=== PATIENT | female | born 1975 | race Caucasian/White ===

== ENCOUNTER 2017-05-05 11:33 | Emergency (ER) | payer MEDICAID ==
--- NOTE | 2017-05-05 12:46 | ED Physician Documentation ---
PD HPI OPHTHO - Stated complaint Stated Complaint: L EYE PX/BACK PX - Chief complaint Chief Complaint: Heent - History obtained from History obtained from: Patient - History of Present Illness Timing - onset: Other (She has 2 issues, seemingly unrelated. For the last 5 days without specific trauma she has had redness of the left eye with tearing and slight photophobia but no vision changes. She has never had that before. She does not wear contacts. Also for the same amount of time she has had upper lumbar pain which is much worse if she leans to the left but is nonradiating. She is in minimal pain at rest. There is no associated weakness, numbness, or tingling of the legs or saddle area. No fevers. 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 HEENT: Tonsil/Adenoidectomy - Present Medications Home Medications: Ambulatory Orders Medication Instructions Recorded Confirmed Atorvastatin [Lipitor] 03/29/17 Cyclobenzaprine [Flexeril] 10 mg PO TID PRN #20 tablet 03/29/17 HYDROcod/ACETAM 5/325 [[place] 5/325] 1 - 2 ea PO Q6H PRN #12 tablet 03/29/17 Levothyroxine [Synthroid] 200 mcg PO DAILY 03/29/17 03/29/17 Pantoprazole [Protonix] 40 mg PO DAILY 03/29/17 03/29/17 Sertraline HCl [Zoloft] 100 mg PO DAILY 03/29/17 03/29/17 buPROPion [Wellbutrin Sr] 03/29/17 Cyclobenzaprine [Flexeril] 10 mg PO TID PRN #20 tablet 05/05/17 Ketorolac 0.45% Ophth Drops 1 each OPTH QID #1 bot 05/05/17 [Acuvail] Meloxicam [Mobic] 7.5 mg PO BIDWM PRN #15 tablet 05/05/17 - Allergies Allergies/Adverse Reactions: Allergies Allergy/AdvReac Type Severity Reaction Status Date / Time amoxicillin Allergy Mild Rash Verified 05/05/17 11:42 - Social History Does the pt smoke?: Yes Smoking Status: Current every day smoker Does the pt drink ETOH?: No Does the pt have substance abuse?: No - Immunizations Immunizations are current?: Yes PD ED PE NORMAL - Vitals Vital signs reviewed: Yes - General General: Alert and oriented X 3, No acute distress - HEENT HEENT: PERRL, EOMI, Other (The left eye has a lateral And inferior sub- conjunctival hematoma, pupils equally round reactive light extra ocular movements are intact, globes are soft.) - Neck Neck: Supple, no meningeal sign, No bony TTP - Back Back: Other (She has muscular tenderness of the upper paralumbar musculatures with good range of motion, she has equal and symmetric Babinski and patellar reflexes, she has very mildly diminished sensation she says on the left thigh and medial calf but not the lateral calf.) - Neuro Neuro: Alert and oriented X 3, Normal speech - Psych Psych: Normal mood, Normal affect Results - Vitals Vitals: Vital Signs - 24 hr 05/05/17 11:38 Temperature 36.6 C Heart Rate 68 Respiratory 16 Rate Blood Pressure 124/86 H O2 Saturation 99 Oxygen O2 Source Room air PD MEDICAL DECISION MAKING - ED course ED course: 42-year-old woman with 2 issues, she has a sub-conjunctival hematoma on the left , it is bothering her so we will give her a topical NSAID for that. She also has what seems like back spasm, she does have some evidence of radicular component on exam, but I suspect that is a more subacute issue. Departure - Departure Disposition: 01 Home, Self Care Clinical Impression: Back spasm Subconjunctival hemorrhage Qualifiers: Laterality: left Qualified Code(s): H11.32 - Conjunctival hemorrhage, left eye Condition: Good Record reviewed to determine appropriate education?: Yes Instructions: ED Eye Injury Subconj Hemorrhage, ED Spasm Back No Trauma Follow-Up: [facility] [Provider Group] Henrry Fuentes MD [Provider Admit Priv/Credential] - Within 3 Days Prescriptions: Cyclobenzaprine [Flexeril] 10 mg PO TID PRN #20 tablet PRN Reason: Pain Ketorolac 0.45% Ophth Drops [Acuvail] 1 each OPTH QID #1 bot Meloxicam [Mobic] 7.5 mg PO BIDWM PRN #15 tablet PRN Reason: Pain Comments: Call your doctor to arrange a follow-up appointment, make the next available appointment. In the interim, return anytime if worse or if new symptoms develop. Your blood pressure was elevated today on check into the emergency department. This does not mean that you have hypertension, it is a common phenomenon to come to the emergency department and have elevated blood pressure. I recommend that you see your primary care physician within the week to have it rechecked when you are feeling better.
[2017-05-05 12:58] VITALS: BP 122/80
== END 2017-05-05 12:57 | disposition home or self-care (01) ==
LOC: ED 11:33
DX: H11.32 Conjunctival hemorrhage, left eye (principal); M62.830 Muscle spasm of back; E78.00 Pure hypercholesterolemia, unspecified; E05.90 Thyrotoxicosis, unspecified without thyrotoxic crisis or storm; K21.9 Gastro-esophageal reflux disease without esophagitis; F17.200 Nicotine dependence, unspecified, uncomplicated; R03.0 Elevated blood-pressure reading, without diagnosis of hypertension
CPT/HCPCS: 99283

== ENCOUNTER 2017-05-20 11:06 | Emergency (ER) | payer MEDICAID ==
[2017-05-20] MEDS ORDERED: LEVOTHYROXINE 100 MCG TABLET PO STA (12:17)
[2017-05-20 12:29] LABS: BASOPHILS # (AUTO) 0.1 10^3/uL (0.0-0.1); EOSINOPHILS # (AUTO) 0.3 10^3/uL (0.0-0.7); EOSINOPHILS % (AUTO) 2.5 %; HCT - HEMATOCRIT 39.5 % (37.0-47.0); HGB - HEMOGLOBIN 13.7 g/dL (12.0-16.0); LYMPHOCYTES # (AUTO) 2.6 10^3/uL (1.5-3.5); LYMPHOCYTES % (AUTO) 24.2 %; MEAN CORPUSCULAR HEMOGLOBIN 32.4 pg (27.0-31.0); MEAN CORPUSCULAR HGB CONC 34.7 g/dL (32.0-36.0); MEAN CORPUSCULAR VOLUME 93.3 fL (81.0-99.0); MEAN PLATELET VOLUME 9.1 fL (7.9-10.8); MONOCYTES # (AUTO) 0.5 10^3/uL (0.0-1.0); MONOCYTES % (AUTO) 4.6 %; NEUTROPHILS # (AUTO) 7.2 10^3/uL (1.5-6.6); NEUTROPHILS % (AUTO) 67.7 %; RED BLOOD COUNT 4.23 10^6/uL (4.20-5.40); UNCORRECTED WHITE BLOOD COUNT 10.6 x10^3/uL; WHITE BLOOD COUNT 10.6 x10^3/uL (4.8-10.8)
[2017-05-20 12:34] LABS: ALBUMIN/GLOBULIN RATIO 1.4 (1.0-2.2); BILIRUBIN,TOTAL 0.6 mg/dL (0.2-1.0); CALCIUM 9.6 mg/dL (8.5-10.3); CREATININE 1.1 mg/dL (0.4-1.0); POTASSIUM 3.9 mmol/L (3.5-5.0); TOTAL PROTEIN 7.8 g/dL (6.7-8.2)
[2017-05-20 14:00] VITALS: BP 133/95
--- NOTE | 2017-05-20 14:03 | ED Physician Documentation ---
History of Present Illness - Stated complaint Stated Complaint: FATIGUE,RX REFILL - Chief complaint Chief Complaint: Cardiac - History obtained from History obtained from: Patient - Additonal information Additional information: The patient is a 42-year-old female who complains of fatigue and states that she thinks it is caused by "not having my medication for 2 months." She has a history of hypothyroidism and has been out of her levothyroxine for the past 2 months. She also has history of depression, hyperlipidemia, and acid reflux, for which she normally takes sertraline, bupropion, atorvastatin, and pantoprazole. She moved here 2 months ago and has not had a local primary physician, but is scheduled to be seen by Dr. Pacheco. In addition to fatigue, she reports having anterior chest pain yesterday while walking. Her pain lasted for about 15 minutes and she reports having associated shortness of breath. She has been asymptomatic today. She reports having a history of similar symptoms about 4 months ago, and after medical evaluation at that time was told she had "fluid around my heart." On further review of systems she denies fever, cough, abdominal pain, nausea or vomiting. She denies dysuria. Review of Systems Constitutional: reports: Fatigue. denies: Fever Ears: denies: Tinnitus/ringing Nose: denies: Congestion Throat: denies: Sore throat Cardiac: reports: Chest pain / pressure (Yesterday, but not today.). 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 HEENT: Tonsil/Adenoidectomy - Present Medications Home Medications: Ambulatory Orders Medication Instructions Recorded Confirmed Atorvastatin [Lipitor] 40 mg ORAL QPM 03/29/17 05/20/17 Levothyroxine [Synthroid] 200 mcg PO DAILY 03/29/17 05/20/17 Pantoprazole [Protonix] 40 mg PO DAILY 03/29/17 05/20/17 Sertraline HCl [Zoloft] 100 mg PO DAILY 03/29/17 05/20/17 Atorvastatin Calcium 40 mg PO DAILY #20 tablet 05/20/17 Bupropion HCl [Bupropion Xl] 150 mg PO DAILY 05/20/17 05/20/17 Bupropion HCl [Bupropion Xl] 150 mg PO DAILY #20 tab.er.24h 05/20/17 Levothyroxine Sodium 200 mcg PO DAILY #20 tablet 05/20/17 Pantoprazole Sodium 40 mg PO DAILY #20 tablet.dr 05/20/17 Sertraline HCl 100 mg PO DAILY #20 tablet 05/20/17 - Allergies Allergies/Adverse Reactions: Allergies Allergy/AdvReac Type Severity Reaction Status Date / Time amoxicillin Allergy Mild Rash Verified 05/20/17 11:15 - Social History Does the pt smoke?: Yes Smoking Status: Current every day smoker Does the pt drink ETOH?: No Does the pt have substance abuse?: No - Immunizations Immunizations are current?: Yes PD ED PE NORMAL - Vitals Vital signs reviewed: Yes (normal) - General General: Alert and oriented X 3, Well developed/nourished - HEENT HEENT: Atraumatic, EOMI, Moist mucous membranes, Pharynx benign - Neck Neck: No adenopathy, No JVD - Cardiac Cardiac: RRR, No murmur - Respiratory Respiratory: No respiratory distress, Clear bilaterally - Abdomen Abdomen: Soft, Non tender, No organomegaly - Back Back: No CVA TTP - Derm Derm: No rash - Neuro Neuro: Alert and oriented X 3, No motor deficit, Normal speech Results - Vitals Vitals: Oxygen O2 Source Room air - EKG (time done) 11:23 Rate: Rate (enter#) (93) Rhythm: NSR [place]: Posterior hemiblock Intervals: Normal [place] QRS: Poor R wave progression, Low voltage Ischemia: Normal ST segments Computer interpretation: Agree with computer - Labs Labs: Laboratory Tests 05/20/17 05/20/17 11:37 11:37 WBC 10.6 RBC 4.23 Hgb 13.7 Hct 39.5 MCV 93.3 MCH 32.4 H MCHC 34.7 RDW 15.0 Plt Count 244 MPV 9.1 Neut # 7.2 H Lymph # 2.6 [place] # 0.5 Eos # 0.3 Baso # 0.1 Absolute Nucleated RBC 0.01 Nucleated RBC % 0.0 Sodium 137 Potassium 3.9 Chloride 98 L Carbon Dioxide 30 Anion Gap 9.0 BUN 15 Creatinine 1.1 H Estimated GFR (MDRD) 54 L Glucose 83 Calcium 9.6 Total Bilirubin 0.6 AST 40 ALT 25 Alkaline Phosphatase 36 L Total Protein 7.8 Albumin 4.5 Globulin 3.3 Albumin/Globulin Ratio 1.4 Lipase 28 PD MEDICAL DECISION MAKING - ED course Complexity details: reviewed results, re-evaluated patient, considered differential, d/w patient, d/w family ED course: The patient's presentation is significant for fatigue that may well be related to running out of her thyroid medication. The possibility of cardiac etiology was considered, given the patient's history of 15 minutes of chest discomfort yesterday. Her electrocardiogram reveals no ischemic abnormalities. CBC and chemistry panel are unremarkable. There is no clinical evidence to suggest infectious etiology. 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 She is being discharged with prescriptions for her 5 previously prescribed medications, including levothyroxine, sertraline, bupropion, atorvastatin, and pantoprazole. I discussed with her and her the importance of outpatient follow-up, as well as potentially worrisome signs or symptoms that should prompt reevaluation in the emergency department. Departure - Departure Disposition: 01 Home, Self Care Clinical Impression: Has run out of medications Fatigue Qualifiers: Fatigue type: unspecified Qualified Code(s): R53.83 - Other fatigue Hypothyroidism Qualifiers: Hypothyroidism type: unspecified Qualified Code(s): E03.9 - Hypothyroidism, unspecified Condition: Stable Instructions: ED Hypothyroidism Follow-Up: Jose Francisco Pacheco MD [Provider Admit Priv/Credential] - Prescriptions: Atorvastatin Calcium 40 mg PO DAILY #20 tablet Bupropion HCl [Bupropion Xl] 150 mg PO DAILY #20 tab.er.24h Levothyroxine Sodium 200 mcg PO DAILY #20 tablet Pantoprazole Sodium 40 mg PO DAILY #20 tablet.dr [place] HCl 100 mg PO DAILY #20 tablet Comments: Drink plenty of fluids. Resume your medications as prescribed. Follow up with your primary physician within 2 weeks. Call to schedule an appointment. Return to the emergency department if you develop increasing palpitations, shortness of breath, progressive fatigue, or otherwise worsening symptoms. Discharge Date/Time: 05/20/17 14:23
== END 2017-05-20 14:23 | disposition home or self-care (01) ==
LOC: ED 11:06
DX: R53.83 Other fatigue (principal); E03.9 Hypothyroidism, unspecified; Z76.0 Encounter for issue of repeat prescription; I44.4 Left anterior fascicular block; R94.31 Abnormal electrocardiogram [ECG] [EKG]; F32.9 Major depressive disorder, single episode, unspecified; E78.5 Hyperlipidemia, unspecified; K21.9 Gastro-esophageal reflux disease without esophagitis; F17.200 Nicotine dependence, unspecified, uncomplicated
CPT/HCPCS: 36415; 80053; 83690; 85025; 93005; 99283; 99284; A9270

== ENCOUNTER 2017-06-17 14:59 | Emergency (ER) | payer OTHER, MEDICAID ==
[2017-06-17 15:10] VITALS: BP 135/73
[2017-06-17] MEDS ORDERED: KETOROLAC 60 MG/2 ML VIAL IM STA (15:36)
[2017-06-17] MEDS ORDERED: CYCLOBENZAPRINE 10 MG TABLET PO STA (15:36)
--- NOTE | 2017-06-17 15:48 | ED Physician Documentation ---
History of Present Illness - Stated complaint Stated Complaint: HIP INJ - Chief complaint Chief Complaint: Ext Problem - History obtained from History obtained from: Patient - History of Present Illness Timing: How many days ago (3) Pain level max: 8 Pain level now: 6 Improved by: remaining still Worsened by: movement - Additonal information Additional information: Patient is a 42-year-old female who presents to the emergency department with low back pain after a fall at work 3 days ago. Fell again last night. Also has mild neck pain. Has not taken anything for this at home. Has recently had other trouble with her low back. This seems to have exacerbated the problem. No numbness or tingling. No urinary incontinence. No IV drug use. No fevers. Review of Systems Ten Systems: 10 systems reviewed and negative Constitutional: denies: Fever, Chills Ears: denies: Ear pain Nose: denies: Rhinorrhea / runny nose, Congestion Throat: denies: Sore throat Cardiac: denies: Chest pain / pressure Respiratory: denies: Cough GI: denies: Abdominal Pain, Nausea, Vomiting, Diarrhea Skin: denies: Rash Neurologic: denies: Focal weakness, Numbness, Confused, Altered mental status, Headache PD PAST MEDICAL HISTORY - Past Medical History Past Medical History: Yes Cardiovascular: High cholesterol Respiratory: None Neuro: None Endocrine/Autoimmune: HyPERthyroidism GI: GERD Psych: Depression, Anxiety Musculoskeletal: None - Past Surgical History Past Surgical History: Yes General: Cholecystectomy 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 HEENT: Tonsil/Adenoidectomy - Present Medications Home Medications: Ambulatory Orders Medication Instructions Recorded Confirmed Pantoprazole [Protonix] 40 mg PO DAILY 03/29/17 06/17/17 Sertraline HCl [Zoloft] 100 mg PO DAILY 03/29/17 06/17/17 Atorvastatin Calcium 40 mg PO DAILY #20 tablet 05/20/17 06/17/17 Bupropion HCl [Bupropion Xl] 150 mg PO DAILY 05/20/17 06/17/17 Levothyroxine Sodium 200 mcg PO DAILY #20 tablet 05/20/17 06/17/17 Cyclobenzaprine [Flexeril] 10 mg PO TID PRN #20 tablet 06/17/17 Meloxicam [Mobic] 15 mg PO DAILY PRN #20 tablet 06/17/17 - Allergies Allergies/Adverse Reactions: Allergies Allergy/AdvReac Type Severity Reaction Status Date / Time amoxicillin Allergy Mild Rash Verified 06/17/17 15:09 - Social History Does the pt smoke?: Yes Smoking Status: Current every day smoker Does the pt drink ETOH?: No Does the pt have substance abuse?: No - Immunizations Immunizations are current?: Yes PD ED PE NORMAL - Vitals Vital signs reviewed: Yes - General General: Alert and oriented X 3, No acute distress, Well developed/nourished - HEENT HEENT: PERRL, Moist mucous membranes - Neck Neck: Supple, no meningeal sign, No bony TTP, Other (mild paraspinal tenderness L sided cervical) - Cardiac Cardiac: RRR, Strong equal pulses - Respiratory Respiratory: No respiratory distress, Clear bilaterally - Abdomen Abdomen: Soft, Non tender, Non distended - Back Back: No spinal TTP, Other (mild TTP L low lumbar. no bony tenderness over the spine or hip. ) - Derm Derm: Warm and dry - Extremities Extremities: No tenderness to palpate, Normal ROM s pain - Neuro Neuro: Alert and oriented X 3, No motor deficit, No sensory deficit - Psych Psych: Normal mood, Normal affect Results - Vitals Vitals: Vital Signs - 24 hr 06/17/17 15:05 Temperature 36.4 C L Heart Rate 91 Respiratory 17 Rate Blood Pressure 135/73 H O2 Saturation 100 Oxygen O2 Source Room air PD MEDICAL DECISION MAKING - ED course Complexity details: reviewed old records, considered differential (no cauda equina, no spinal epidural abscess, no fracture, no aortic dissection or evidence of aneursym rupture), d/w patient ED course: Patient is a 42-year-old female presents to the emergency department after a fall at work 2 days ago and then again last night. Slipped on linoleum kimber. No evidence of fracture clinically. No indication for x-rays. Will trial on nonsteroidal anti-inflammatory medications as well as muscle relaxants and follow-up closely with her doctor. She is off for the next several days and will see how she is doing on Tuesday when she is supposed to return to work. Ambulating well here. No evidence of cauda equina, epidural abscess. Patient counseled regarding signs and symptoms for which I believe and urgent re -evaluation would be necessary. Patient with good understanding of and agreement to plan and is comfortable going home at this time This document was made in part using voice recognition software. While efforts are made to proofread this document, sound alike and grammatical errors may occur. Departure - Departure Disposition: 01 Home, Self Care Clinical Impression: Back spasm Back pain Qualifiers: Back pain location: low back pain Chronicity: acute Back pain laterality: left Sciatica presence: without sciatica Qualified Code(s): M54.5 - Low back pain Condition: Good Instructions: ED Neck Back Pain General Follow-Up: Jose Francisco Pacheco MD [Provider Admit Priv/Credential] - Within 1 week Prescriptions: Cyclobenzaprine [Flexeril] 10 mg PO TID PRN #20 tablet PRN Reason: Spasms Meloxicam [Mobic] 15 mg PO DAILY PRN #20 tablet PRN Reason: pain Comments: This should improve over the next few days. Return if you worsen. Do not drive or operate heavy machinery while taking Flexeril. Discharge Date/Time: 06/17/17 16:01
== END 2017-06-17 16:01 | disposition home or self-care (01) ==
LOC: ED 14:59
DX: E05.90 Thyrotoxicosis, unspecified without thyrotoxic crisis or storm (principal); E78.00 Pure hypercholesterolemia, unspecified; F17.200 Nicotine dependence, unspecified, uncomplicated; Z96.659 Presence of unspecified artificial knee joint; W19.XXXA Unspecified fall, initial encounter
CPT/HCPCS: 1040M; 99283; A9270

== ENCOUNTER 2017-07-01 09:20 | Emergency (ER) | payer MEDICAID ==
--- NOTE | 2017-07-01 11:14 | ED Physician Documentation ---
PD HPI HEENT - Stated complaint Stated Complaint: UNABLE TO SWALLOW - Chief complaint Chief Complaint: Heent - History obtained from History obtained from: Patient - History of Present Illness Timing - onset: How many days ago (3) Timing - duration: Days (3) Timing - details: Still present Location: Throat, Tooth Worsens: Swalllowing Associated symptoms: Swollen nodes. No: Fever, Congestion, Facial swelling, Headache Similar symptoms before: Has not had sx before - Additional information Additional information: The patient is a 42-year-old female who presents with toothache that started 3 days ago and has persisted since that time. She has now developed discomfort with swallowing, particularly on the left side. She also feels like there is pressure in her ears. She denies headache, fever, or abdominal symptoms. She has had slight cough. Review of Systems Constitutional: denies: Fever Eyes: denies: Decreased vision Ears: reports: Ear pain. denies: Tinnitus/ringing Nose: denies: Congestion Throat: reports: Dental pain / toothache, Sore throat Cardiac: denies: Chest pain / pressure Respiratory: reports: Cough (Smoker's cough.). 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 HEENT: Tonsil/Adenoidectomy - Present Medications Home Medications: Ambulatory Orders Medication Instructions Recorded Confirmed Pantoprazole [Protonix] 40 mg PO DAILY 03/29/17 06/17/17 Sertraline HCl [Zoloft] 100 mg PO DAILY 03/29/17 06/17/17 Atorvastatin Calcium 40 mg PO DAILY #20 tablet 05/20/17 06/17/17 Bupropion HCl [Bupropion Xl] 150 mg PO DAILY 05/20/17 06/17/17 Levothyroxine Sodium 200 mcg PO DAILY #20 tablet 05/20/17 06/17/17 Cyclobenzaprine [Flexeril] 10 mg PO TID PRN #20 tablet 06/17/17 Meloxicam [Mobic] 15 mg PO DAILY PRN #20 tablet 06/17/17 Azithromycin [Zithromax] 250 mg PO DAILY #6 tablet 07/01/17 HYDROcod/ACETAM 5/325 [Vicodin 1 - 2 ea PO Q6H PRN #15 tablet 07/01/17 5/325] - Allergies Allergies/Adverse Reactions: Allergies Allergy/AdvReac Type Severity Reaction Status Date / Time amoxicillin Allergy Mild Rash Verified 06/17/17 15:09 - Social History Does the pt smoke?: Yes Smoking Status: Current every day smoker Does the pt drink ETOH?: No Does the pt have substance abuse?: No - Immunizations Immunizations are current?: Yes PD ED PE NORMAL - Vitals Vital signs reviewed: Yes (Normal) - General General: Alert and oriented X 3, Well developed/nourished - HEENT HEENT: Atraumatic, EOMI, Ears normal, Moist mucous membranes, Pharynx benign, Other (Tenderness to palpation of the left rearmost lower molar. There is dental filling, with an adjacent dental decay. The adjacent lower molar is decayed, but is not particularly tender to palpation. Many teeth have been extracted, and there are several fillings. Oropharynx is without swelling or erythema.) - Neck Neck: Supple, no meningeal sign, Other (Mildly enlarged left anterior cervical lymph nodes.) - Cardiac Cardiac: RRR, No murmur - Respiratory Respiratory: No respiratory distress, Clear bilaterally Results - Vitals Vitals: Oxygen O2 Source Room air PD MEDICAL DECISION MAKING - ED course Complexity details: considered differential, d/w patient ED course: The patient's presentation is significant for dental abscess of left lower molar. Her exam does not reveal evidence of peritonsillar abscess. She is being discharged with prescription for Zithromax (she is allergic to penicillin) , and for Vicodin, 15 tablets. I discussed with her and her the expected course of illness, antibiotic treatment and urgent dental follow-up, as well as potentially worsening signs or symptoms that should prompt reevaluation in the emergency department. Departure - Departure Disposition: 01 Home, Self Care Clinical Impression: Dental abscess Condition: Stable Instructions: ED Abscess Dental Follow-Up: Link Garcia MD [Provider Admit Priv/Credential] - Prescriptions: Azithromycin [Zithromax] 250 mg PO DAILY #6 tablet HYDROcod/ACETAM 5/325 [Vicodin 5/325] 1 - 2 ea PO Q6H PRN #15 tablet PRN Reason: Pain Comments: Take Zithromax daily as prescribed. You can use ibuprofen, up to 800 mg 3 times daily for its anti-inflammatory effect. You can use Vicodin as prescribed if needed for pain. Follow up with a dentist as soon as possible. Return to the emergency department if you develop increasing facial swelling, increasing pain, increasing difficulty swallowing, or otherwise worsening symptoms. Discharge Date/Time: 07/01/17 11:30
[2017-07-01 11:31] VITALS: BP 112/75
== END 2017-07-01 11:30 | disposition home or self-care (01) ==
LOC: ED 09:20
DX: K04.7 Periapical abscess without sinus (principal); E78.00 Pure hypercholesterolemia, unspecified; F17.200 Nicotine dependence, unspecified, uncomplicated; Z96.659 Presence of unspecified artificial knee joint
CPT/HCPCS: 99283